=== PATIENT | male | born 1985 | race Caucasian/White ===

== ENCOUNTER 2016-08-06 23:22 | Emergency (ER) | payer BC, MEDICAID ==
[~2016-08-06] VITALS: Ht 182.9 cm; Wt 118.5 kg
[~2016-08-06 23:22] MED LIST: NO MEDICATIONS; [UNRECOGNIZED DRUG - REMARK]
[2016-08-06 23:27] VITALS: Ht 182.9 cm; Wt 118.5 kg
[2016-08-06] MEDS ORDERED: DIPHENHYDRAMINE 50 MG INJ IV STA (23:58)
[2016-08-06] MEDS ORDERED: SOD CHLORIDE 0.9% 1,000 ML IV STA (23:58)
[2016-08-06] MEDS ORDERED: METOCLOPRAMIDE 10 MG INJ IV STA (23:58)
[2016-08-07] MEDS ORDERED: ACETAMINOPHEN 1000MG/100ML IV 100 ML IVPB ONE
--- NOTE | 2016-08-07 00:11 | ERD ---
ER Documentation Chief Complaint Date/Time DATE: 08/07/16 TIME: 00:08 Chief Complaint headache today HPI Patient is a 30-year-old male who presents with headache that started at 8 PM today. He states that the pain came on slowly and has gotten worse. He states that he does have a history of headaches however it is unlike any headache he has had before. Complains of nausea with one episode of vomiting, nonbloody non -bilious. States that the pain is located on the left side of his head. Denies trauma. Denies blurry vision. Denies dizziness. Denies weakness or difficulty walking or speaking. Denies photophobia or phonophobia. Denies nasal congestion, drainage from his ears or nose. Denies abdominal pain, diarrhea or constipation. Has taken ibuprofen for the pain with minimal relief. Denies auras. Denies leg pain or swelling. Denies cough, shortness of breath or difficulty breathing. ROS All systems reviewed and are negative except as per history of present illness. Medications Home Meds Active Scripts Ondansetron Hcl* (Zofran*) 4 Mg Tablet, 4 MG PO Q6H for NAUSEA AND/OR VOMITING, #30 TAB Prov:OSORIO MONTALVO PA-C 08/07/16 Acetaminophen/Aspirin/Caffeine* (Excedrin*) 1 Tab Tab, 1 TAB PO BID for 30 Days , TAB Prov:OSORIO MONTALVO PA-C 08/07/16 Reported Medications [denies meds and allergies] No Conflict Check 06/11/12 [No Medications] No Conflict Check 12/03/11 Allergies Allergies: Coded Allergies: No Known Allergies (Verified Allergy, Unknown, 08/07/16) PMhx/Soc Medical and Surgical Hx: pt denies Medical Hx, pt denies Surgical Hx History of Surgery: No Anesthesia Reaction: No Hx Neurological Disorder: No Hx Respiratory Disorders: No Hx Cardiac Disorders: No Hx Psychiatric Problems: No Hx Miscellaneous Medical Probl: No Hx Alcohol Use: Yes Hx Substance Use: No Hx Tobacco Use: No Smoking Status: Never smoker FmHx Family History: No coronary disease, No diabetes, No other Physical Exam Vitals Vital Signs Date Time Temp Pulse Resp B/P Pulse Ox O2 Delivery O2 Flow Rate FiO2 08/06/16 23:27 98.5 58 20 135/67 100 Physical Exam GENERAL: Well-developed, well-nourished male. Appears in no acute distress. HEAD: Normocephalic, atraumatic. EYES: Pupils are equally reactive bilaterally. EOMs grossly intact. No conjunctival erythema. ENT: Moist mucous membranes. No uvula deviation. No kissing tonsils. No exudates. No rhinorrhea or drainage. NECK: Supple. No lymphadenopathy or thyromegaly. No meningismus. negative kernig. negative brudinski. LUNG: Clear to auscultation bilaterally. No rhonchi, wheezing, rales or coarse breath sounds. HEART: Regular rate and rhythm. No murmurs, rubs or gallops. ABDOMEN: No scars, ecchymosis or rashes noted. Soft, nontender, and nondistended. Positive bowel sounds in all four quadrants. No rebound tenderness , no guarding. (-) McBurneys point tenderness. No CVA tenderness. BACK: No midline tenderness. Extremities: Equal pulses bilaterally. No peripheral clubbing, cyanosis or edema. No unilateral leg swelling. NEUROLOGIC: Alert and oriented. Moving all four extremities. 5/5 strength in all extremities. Normal speech. Steady gait. Cranial nerves II through XII intact SKIN: Normal color. Warm and dry. No rashes or lesions. Capillary refill < 2 seconds Results 24 hrs Current Medications Medications (Trade) Dose Ordered Sig/[place] Route PRN Reason Start Time Stop Time Status Last Admin Dose Admin Sodium Chloride (NS) 1,000 ml @ 1,000 mls/hr Q1H STAT IV 08/06/16 23:58 08/07/16 00:57 DC 08/07/16 00:26 Metoclopramide HCl (Reglan) 10 mg ONCE STAT IV 08/06/16 23:58 08/07/16 00:00 DC 08/07/16 00:26 Diphenhydramine HCl 25 mg 25 mg ONCE STAT IV 08/06/16 23:58 08/07/16 00:00 DC 08/07/16 00:26 Acetaminophen (Ofirmev 1000mg/ 100ml Iv) 100 ml @ 400 mls/hr ONCE ONCE IVPB 08/07/16 00:00 08/07/16 00:38 DC Acetaminophen (Tylenol Tab) 1,000 mg ONCE STAT PO 08/07/16 00:37 08/07/16 00:38 DC 08/07/16 00:51 Ketorolac Tromethamine (Toradol) 30 mg ONCE STAT IV 08/07/16 01:09 08/07/16 01:10 DC 08/07/16 01:13 Procedures/MDM ER COURSE: I kept the patient and/or family informed of laboratory and diagnostic imaging results throughout the emergency room course. EKG, MONITORS, & DIAGNOSTIC IMAGING: [place] [id number] Radiology Main Line: [phone] DIAGNOSTIC IMAGING REPORT Patient: MARICHUY GRANT : 1985 Age: 30 Sex: M MR #: [id number] DOS: 08/06/16 2357 Ordering MD: OSORIO MONTALVO PA-C Location: [facility] Room/Bed: PROCEDURE: Noncontrast CT Head. CLINICAL INDICATION: Headache. TECHNIQUE: Noncontrast CT of the head was obtained. The administered radiation dose was CTDI vol = 45 mGy, DLP = 810 mGy-cm. COMPARISON: No pertinent prior examinations were submitted for comparison. FINDINGS: The ventricles and sulci are within normal limits. There is no acute intracranial hemorrhage or extra-axial fluid collection. There is no mass effect. No midline shift is identified. There is no loss of devi-white differentiation to suggest acute infarction. The orbits are within normal limits. The paranasal sinuses and mastoid air cells are without fluid. No destructive osseous lesion is identified. IMPRESSION: No acute findings. RPTAT: HIKT .Richar Soto MD, MD Date Time Electronically viewed and signed by .Richar Soto MD, MD on 08/07/2016 00:42 .T/ CC: OSORIO MONTALVO PA-C MEDICATIONS: IV fluids, Tylenol, Reglan and Benadryl, Toradol. Tolerated well with no adverse reaction. Stated improvement in symptoms. MEDICAL DECISION MAKING: This is a 30-year-old male who presents with headache 1 day. Vital signs were reviewed. Patient is afebrile. Patient is not hypoxic. Patient is not toxic or ill-appearing. Patient has a headache. CT scan is read by radiologist is unremarkable. Low suspicion for intracranial hemorrhage, meningitis, intracranial mass, concussion, temporal arteritis, stroke, elevated intracranial pressure, seizure. I reexamined patient after medication and stated improvement in symptoms and ready to be discharged. DISCHARGE: At this time, patient is stable for discharge and outpatient management with no new complaints during the ER course. Patient was sent home with Beba. Patient will be discharged home with instructions to recheck for new or worsening symptoms such as fever, nausea, weakness, LOC and to follow up with primary care in the next 1-2 days. Patient was advised to return to the ER for any new or worsening symptoms. Plan was discussed and patient and/or family understands and agrees. Home instructions were given. Departure Diagnosis: Primary Impression: Headache Headache type: unspecified Headache chronicity pattern: unspecified pattern Intractability: not intractable Qualified Code: R51 - Nonintractable headache, unspecified chronicity pattern, unspecified headache type Condition: Stable OSORIO MONTALVO PA-C Aug 07, 2016 00:11
[2016-08-07] MEDS ORDERED: ACETAMINOPHEN 500 MG TAB PO STA (00:37)
--- NOTE | 2016-08-07 00:42 | RADRPT ---
PROCEDURE: Noncontrast CT Head. CLINICAL INDICATION: Headache. TECHNIQUE: Noncontrast CT of the head was obtained. The administered radiation dose was CTDI vol = 45 mGy, DLP = 810 mGy-cm. COMPARISON: No pertinent prior examinations were submitted for comparison. FINDINGS: The ventricles and sulci are within normal limits. There is no acute intracranial hemorrhage or ext ra-axial fluid collection. There is no mass effect. No midline shift is identified. There is no loss of devi-white differentiation to suggest acute infarction. The orbits are within normal limits. The paranasal sinuses and mastoid air cells are without fluid. No destructive osseous lesion is identified. IMPRESSION: No acute findings. RPTAT: HIKT .Richar Soto MD, MD Date Time Electronically viewed and signed by .Richar Soto MD, on 08/07/2016 00:42 .T/
[2016-08-07] MEDS ORDERED: EXCED PO (01:02)
[2016-08-07] MEDS ORDERED: ONDA4TAB8 PO (01:03)
[2016-08-07] MEDS ORDERED: KETOROLAC 30 MG INJ IV STA (01:09)
[2016-08-07 01:38] VITALS: BP 134/71; PULSE 72; RESP 14; TEMP 97.6
== END 2016-08-07 02:23 | disposition home or self-care (01) ==
LOC: FTE 23:22
DX: R51 Headache (principal)
CPT/HCPCS: 70450; 96374; 96375; 99285; J0131; J1200; J1885; J2765; J7030